=== PATIENT | female | born 1950 | race Caucasian/White ===

== ENCOUNTER → 2016-07-08 | Outpatient (CLI) | payer BC ==
[~2016-07-08] MED LIST: IBUPROFEN IN40 MG/ML PO; IBUPROFEN PO; NABUMETONE PO; PERCOCET5/325; ZYRTEC; ZYRTEC PO
--- NOTE | ~2016-07-08 | ST ---
Unit #: [id number] #: [id number] Patient: VICKY BRUNO [id number] [address] [address] [id number] O MR#: [id number] NAME: VICKY BRUNO. : 1950 SEX: F STUDY DATE/TIME: 07/08/2016 UNIT: [facility] ROOM: STUDY DESCRIPTION: stress Attending Physician: Edmond Bowles M.D. Referring Physician: Edmond Bowles M.D. Primary Care Physician: Parvez White M.D. CARDIOLOGY REPORT EXAM EKG portion of stress test. INDICATIONS Chest pain. FINDINGS Resting EKG showed normal sinus rhythm with no significant ST segment changes. Resting blood pressure was 139/81. Post exercise blood pressure was 142/80. Maximum heart rate was 133 beats per minute. The patient exercised according to the Eze protocol and the treadmill for 8 minutes and 50 seconds, achieving a workload of 10.1 METs. His heart rate max was 133 beats per minute which represented 85% of maximal age-predicted heart rate. His peak EKG showed sinus tachycardia with no significant ST segment changes to suggest ischemia. His exercise portion of the stress test showed high burden of PVCs with bigeminy. The frequency of these PVCs decreased significantly at peak exercise, was noticed to be significant in the warm up with complete resolution of PVCs in recovery. IMPRESSION 1. No EKG changes to suggest ischemia. 2. High burden of PVCs and bigeminies during the warming up phase of the exercise in stage 2 and 3 of the exercise with significant decrease in the PVC burden at peak exercise toward the end of stage 3. Dictated by... Malcom Bender TD: 07/09/2016 08:39 JOB #: [id number] Unit #: [id number] #: [id number] Patient: VICKY BRUNO CARDIOLOGY REPORT Page 1 of 1 X CARDIOLOGY REPORT
--- NOTE | ~2016-07-08 | TH ---
Unit #: [id number] #: [id number] Patient: VICKY BRUNO [id number] [address] [address] [id number] O MR#: [id number] NAME: VICKY BRUNO : 1950 SEX: F STUDY DATE/TIME: 07/08/2016 UNIT: [facility] ROOM: STUDY DESCRIPTION: Imaging study Attending Physician: Edmond Bowles M.D. Referring Physician: Edmond Bowles M.D. Primary Care Physician: Parvez White M.D. CARDIOLOGY REPORT EXAM Nuclear portion of the exercise nuclear stress test INDICATION Chest pain. FINDINGS Resting dose was 12 mCi. Stress dose was 35.8 mCi. End-diastolic volume was 62 mL. End-systolic volume was 22 mL. Calculated EF of 64%. The raw images showed no significantly abnormal extracardiac uptake. Gated images showed normal wall motion with calculated ejection fraction of 64%. Perfusion images showed no significantly abnormal fixed or reversible defect. IMPRESSION 1. Normal nuclear portion of the exercise nuclear stress test with no fixed or reversible defect. 2. Normal wall motion with calculated ejection fraction of 64%. Dictated by... Malcom Bender TD: 07/09/2016 14:42 JOB #: [id number] CARDIOLOGY REPORT Page 1 of 1 X CARDIOLOGY REPORT
--- NOTE | ~2016-07-08 | ST ---
Unit #: [id number] #: [id number] Patient: VICKY BRUNO [id number] [address] [address] [id number] O MR#: [id number] NAME: VICKY BRUNO : 1950 SEX: F STUDY DATE/TIME: 07/08/2016 UNIT: [facility] ROOM: STUDY DESCRIPTION: Cardiac stress test. Attending Physician: Edmond Bowles M.D. Referring Physician: Edmond Bowles M.D. Primary Care Physician: Parvez White M.D. CARDIOLOGY REPORT EXAM Cardiac stress test. REASON FOR STUDY Irregular heart rate. PROCEDURE Baseline EKG is normal sinus rhythm with a rate of 66 beats per minute. The patient exercised on the treadmill according to Eze protocol for a total of 8 minutes 50 seconds. She achieved a work load level of 10.10 METS. Resting heart rate was 66. Maximal heart rate was 133 beats per minute, representing 85% of the maximum predicted age heart rate. The patient's symptoms were fatigue. The patient was noted to have multiple PVCs. The test was stopped due to fatigue. IMPRESSION 1. There are no ST-T wave changes. 2. The patient did experience shortness of breath and leg fatigue, which resolved in recovery. 3. The patient was noted to have multiple PVCs which resolved in recovery. 4. Correlate with Cardiolite imaging. Dictated by... Shannon Giron A.P.R.N. for Edmond Bowles M.D. AM/bryce TD: 07/08/2016 09:22 JOB #: [id number] CARDIOLOGY REPORT Page 1 of 1 X Shannon Giron APRN CARDIOLOGY REPORT
--- NOTE | ~2016-07-08 | TH ---
Unit #: [id number] #: [id number] Patient: VICKY BRUNO [id number] [address] [address] [id number] O MR#: [id number] NAME: VICKY BRUNO. : 1950 SEX: F STUDY DATE/TIME: 07/08/2016 UNIT: [facility] ROOM: STUDY DESCRIPTION: Imaging study Attending Physician: Edmond Bowles M.D. Referring Physician: Edmond Bowles M.D. Primary Care Physician: Parvez White M.D. CARDIOLOGY REPORT EXAM Nuclear portion of the exercise nuclear stress test INDICATION Chest pain. FINDINGS Resting dose was 12 mCi. Stress dose was 35.8 mCi. End-diastolic volume was 62 mL. End-systolic volume was 22 mL. Calculated ejection fraction of 64%. Raw images showed no significantly abnormal extracardiac uptake. Perfusion images showed no significant reversible or fixed defect Gated images showed normal wall motion with calculated EF of 64%. IMPRESSION 1. No significant fixed or reversible defect. 2. Normal wall motion with calculated ejection fraction of 64%. Dictated by.Meghann Oliva M.D. BA/camilla TD: 07/09/2016 14:22 JOB #: [id number] Unit #: [id number] #: [id number] Patient: VICKY BRUNO CARDIOLOGY REPORT Page 1 of 1 X CARDIOLOGY REPORT
== END | disposition home or self-care (01) ==
LOC: CNUC 07:06
DX: R53.83 Other fatigue (principal); I10 Essential (primary) hypertension; E78.5 Hyperlipidemia, unspecified
CPT/HCPCS: 78452; 93017; A9500